=== PATIENT | male | born 1990 | race Caucasian/White ===

== ENCOUNTER 2018-10-24 20:30 | Observation (INO) | payer OTHER ==
[~2018-10-24] VITALS: Ht 175.3 cm; Wt 78.1 kg
[2018-10-24 21:17] LABS: BASOPHILS 0.1 % (0-2); EOSINOPHILS 0.3 % (0-7); HEMATOCRIT 42.5 % (42.0-54.0); HEMOGLOBIN 15.2 g/dL (13.5-17.5); IMMATURE GRANULOCYTES 0.3 % (0-5); LYMPHOCYTES 23.5 % (15-50); MCH 30.6 pg (26.0-34.0); MCHC 35.8 g/dL (31.0-37.0); MCV 85.5 fL (80.0-100.0); MEAN PLATELET VOLUME 10.5 fL (7.4-10.4); MONOCYTES 6.9 % (2-11); NEUTROPHILS 68.9 % (40-80); PLATELET COUNT 298 10x3/uL (130-400); RBC 4.97 10x6/uL (4.20-6.10); RDW 12.6 % (11.5-14.5); WBC 11.9 10x3/uL (4.8-10.8)
[2018-10-24 21:30] LABS: ALBUMIN 4.5 g/dL (3.4-5.0); ALKALINE PHOSPHATASE 56 U/L (46-116); ALT (SGPT) 25 U/L (10-68); BILIRUBIN - TOTAL 0.34 mg/dL (0.2-1.3); CALC OSMOLALITY 281 mosm/kg (275-300); CALCIUM 8.2 mg/dL (8.5-10.1); CHLORIDE - SERUM 105 mmol/L (98-107); CREATININE - SERUM 0.6 mg/dL (0.6-1.3); GLUCOSE 104 mg/dL (74-106); POTASSIUM - SERUM 3.5 mmol/L (3.5-5.1); PROTEIN - SERUM 7.9 g/dL (6.4-8.2); SODIUM 142 mmol/L (136-145); UREA NITROGEN 9 mg/dL (7-18); eGFR NON AFRICAN AMERICAN > 90 mL/min (90-120)
--- NOTE | 2018-10-24 22:00 | NUR ---
PT CAME TO THE NURSE DESK AND STATES THAT HE IS IN THE FLOOR. STATES THAT HE WAS TRYING TO GO SMOKE. ASSISTED PT BACK TO BED. VITAL SIGNS STABLE. C/O PAIN IN HIS LEFT ANKLE.
[2018-10-24 22:05] VITALS: BP 139/71
--- NOTE | 2018-10-24 23:38 | NUR ---
EDP DOWNED AT BEDSIDE. LEFT ANKLE SPLINTED.
[2018-10-25 00:46] VITALS: BP 114/71; Ht 175.3 cm; Wt 78.1 kg
--- NOTE | 2018-10-25 01:00 | NUR ---
PT ARRIVED ON UNIT VIA STRETCHER ESCORTED BY ER NURSE. TRANSFERRED HIMSELF TO BED WHILE YELLING, BUT DID MOVE HIMSELF. ELEVATED LEFT FOOT ON PILLOW. CONTINUED MVI IV FLUIDS TO LEFT AC AT 125 ML / HR. INVENTORIED BELONGINGS AND DOCUMENTED IN ASSESSMENT. CELLPHONE ON BEDSIDE TABLE; SILVER COLORED RING ON LEFT RING FINGER; BLACK WATCH ON LEFT ARM; ALL OTHER BELONGINGS IN BAG IN CLOSET INCLUDING KEYS IN JEANS POCKET.
--- NOTE | 2018-10-25 01:02 | NUR ---
ADMISSION ASSESSMENT AND HISTORY COMPLETE MUCH POSSIBLE WITH UNCONSCIOUS PATIENT.
[2018-10-25 05:27] VITALS: BP 124/62
[2018-10-25 07:58] LABS: BASOPHILS 0.1 % (0-2); EOSINOPHILS 0.3 % (0-7); HEMATOCRIT 39.1 % (42.0-54.0); HEMOGLOBIN 13.6 g/dL (13.5-17.5); IMMATURE GRANULOCYTES 0.4 % (0-5); LYMPHOCYTES 19.7 % (15-50); MCH 30.2 pg (26.0-34.0); MCHC 34.8 g/dL (31.0-37.0); MCV 86.7 fL (80.0-100.0); MEAN PLATELET VOLUME 10.8 fL (7.4-10.4); MONOCYTES 7.8 % (2-11); NEUTROPHILS 71.7 % (40-80); PLATELET COUNT 282 10x3/uL (130-400); RBC 4.51 10x6/uL (4.20-6.10); RDW 12.9 % (11.5-14.5); WBC 13.8 10x3/uL (4.8-10.8)
[2018-10-25 08:00] VITALS: BP 101/43
[2018-10-25 08:30] LABS: ALBUMIN 3.9 g/dL (3.4-5.0); ALKALINE PHOSPHATASE 53 U/L (46-116); ALT (SGPT) 24 U/L (10-68); BILIRUBIN - TOTAL 0.35 mg/dL (0.2-1.3); CALC OSMOLALITY 286 mosm/kg (275-300); CALCIUM 8.1 mg/dL (8.5-10.1); CARBON DIOXIDE 21.6 mmol/L (21.0-32.0); CHLORIDE - SERUM 109 mmol/L (98-107); CREATININE - SERUM 0.7 mg/dL (0.6-1.3); GLUCOSE 92 mg/dL (74-106); MAGNESIUM - SERUM 2.8 mg/dL (1.8-2.4); POTASSIUM - SERUM 3.7 mmol/L (3.5-5.1); PROTEIN - SERUM 6.9 g/dL (6.4-8.2); SODIUM 144 mmol/L (136-145); eGFR NON AFRICAN AMERICAN > 90 mL/min (90-120)
[2018-10-25 08:31] LABS: UREA NITROGEN 12 mg/dL (7-18)
[2018-10-25 14:00] VITALS: BP 121/45
[2018-10-25 18:01] VITALS: BP 122/59
[2018-10-25 20:00] VITALS: BP 118/50
--- NOTE | 2018-10-25 20:20 | NUR ---
ASSESSMENT PER FLOWSHEET. JOSE RAUL WRAP TO LEFT FOOT C/D/I. WITH SPLINT. ELEVATED ON ONE PILLOW. C/O INCREASED PAIN. RATES PAIN LEVEL #10 MORPHINE 4 MG IVP GIVEN FOR PAIN CONTROL. ELEVATED LEFT LEG ON 3 PILLOWS AND ICE BAG PLACED TO ANKLE. ELEVATED FOOT OF BED ALSO.
--- NOTE | 2018-10-25 21:00 | NUR ---
IV PATENT LEFT AC OF LR AT 50CC'S/HR. SITE CLEAR.
--- NOTE | 2018-10-25 22:00 | NUR ---
C/O INCREASED PAIN IN LEFT ANKLE FX. INFORMED PATIENT TOO EARLY FOR PAIN MED WILL NEED TO WAIT TIL 2330 THE EARILIEST CAN GIVE.
--- NOTE | 2018-10-25 23:44 | NUR ---
C/O PAIN TO LEFT ANKLE FRACTURE RATES PAIN LEVEL #10 MORPHINE 4 MG IVP GIVEN FOR PAIN CONTROL.
--- NOTE | 2018-10-26 00:15 | NUR ---
C/O INCREASED PAIN TO LEFT ANKLE FX. NOTIFIED DR. Osvaldo MARKS. HE WILL COME TO [facility] IN ABOUT 10-15 MINUTES. OBTAINED COMPARTMENT KIT FROM ER DEPT.
--- NOTE | 2018-10-26 00:30 | NUR ---
DR. HANDY HERE TO ASSESS PATIENT. NO COMPARTMENT SYNDROME NOTED. ORDERS REC'D FOR ONE TIME DOSE OF DEMEROL IM.
--- NOTE | 2018-10-26 00:50 | NUR ---
DEMEROL 100MG IM GIVEN X1 DOSE TO LEFT GLUTE.
[2018-10-26 04:00] VITALS: BP 114/64
--- NOTE | 2018-10-26 05:19 | NUR ---
C/O PAIN IN LEFT ANKLE FX RATES PAIN #6. MORPHINE 4MG IVP GIVEN FOR PAIN CONTROL.REMAINS NPO FOR SURGERY THIS AM. HIBICLEANSE BATH GIVEN EARILIER TONIGHT BY HIS .
--- NOTE | 2018-10-26 08:00 | NUR ---
LYING IN BED,WITHOUT DISTRESS.
[2018-10-26 10:14] VITALS: BP 118/69
[2018-10-26 12:19] VITALS: BP 120/79
--- NOTE | 2018-10-26 12:54 | OP ---
PATIENT NAME: JADEN AGUILLON MEDICAL RECORD: [id number] :[birth year] LOCATION:D[id number] ADMISSION DATE:10/24/18 SURGEON: NATHAN PORTER DO DATE OF OPERATION: 10/26/2018 PROCEDURE PERFORMED: Left ankle open reduction and internal fixation with syndesmotic fixation. PREOPERATIVE DIAGNOSIS: Left ankle bimalleolar fracture with syndesmotic disruption. POSTOPERATIVE DIAGNOSIS: Left ankle bimalleolar fracture with syndesmotic disruption. INDICATIONS: Mr. Aguillon is a 28-year-old male who, on Thursday night, fell while working in his shop off a ladder and fractured his left ankle. He was brought into the ER, initially splinted; but he was intoxicated, so admitted him overnight. He could not get his ankle surgery yesterday due to OR constraints, so he was put on for this morning, on the . He was aware of risks and benefits of the procedure including infection; bleeding; damage to nerves, specifically the superficial peroneal nerve; need for further surgery; malunion; nonunion; and removal of hardware. He signed the consent. SURGEON: Nathan Porter DO WELDER BOILERMAKER: I was assisted by Jonas Owusu, Advanced Nurse Practitioner, who assisted with holding retractors and closing. This surgery could not have been performed without his assistance. DESCRIPTION OF PROCEDURE: The patient received a block by anesthesia in the preoperative area. He was taken to the operative suite, laid in supine position, given general anesthetic, and LMA was placed. He was given 2 grams of Ancef preoperatively. Left lower extremity was prepped and draped in sterile fashion. Time-out was performed and everyone was in agreeance with correct side, site, patient, and procedure. After time-out was performed, the left lower extremity was exsanguinated with an Esmarch and the tourniquet was inflated to 350 mmHg, was up for 63 minutes. The incision then began over the medial malleolus, a curvilinear incision. Dissection was made down to the medial malleolus. Reduction was made and 2 K-wires were put in, holding reduction and confirming good placement on AP and lateral, and then two 40-mm partially threaded screws were placed over those, getting good fixation and holding the medial mal in place. The fibular fracture was then addressed. An approximately 3-cm incision was made distally over the fibula and then proximal to the fracture site. Plate was held up and an 8-hole plate would be an adequate distance of fixation. Then, a Triana was used to clear off the fibula and the path for the plate. The plate was then slid up submuscular up on the fibula. It was fixed into place with 2 ball tip pins, and once it was in good position on AP and lateral, fixed distally first with locking screws and then proximally with cortical screws. Then, one of the cortical screws was changed out for a locking screw and then one more locking screw was put distally. Then, a syndesmotic fixation was done. A large clamp was used to clamp the ankle together, closing the medial space. Then, the first TightRope was put, the distal one, through and cinched down and then the more proximal one was placed and cinched down with good fixation on AP and lateral; and then the clamp was removed. The ankle was stressed and held in good position. No medial space OPERATIVE REPORT [id number] JADEN AGUILLON was seen. The tourniquet was then let down at 63 minutes. All bleeders were coagulated at that time. The incisions were then closed with 2-0 Vicryl and ZipLines on the skin and then Adaptic and 4 x 4 were placed over the incision site with ABD on the heel. Then, cast padding was used to wrap and secure that in place and wrap up the lower leg. Then, a 4 x 30 splint was placed on the posterior aspect of the lower leg and secured in place with a 6- and a 4-inch Jason wraps. The patient was awakened then and taken to recovery in stable condition. BLOOD LOSS: Approximately 50 mL. COMPLICATIONS: None. TRANSINT:[id number] Voice Confirmation ID: [id number] DOCUMENT ID: [id number] NATHAN PORTER DO at 1254 CC: [id number] DICTATION DATE: 10/26/18914 HAND CLIPPER: 10/26/18 1237 ADM IN [facility] [address] [place] [address]
[2018-10-26 13:27] VITALS: BP 106/60
[2018-10-26] MEDS ORDERED: VISTARIL50 MG PO (13:29)
[2018-10-26] MEDS ORDERED: OXYCODONE HCL5 M1 PO (13:29)
--- NOTE | 2018-10-26 14:59 | NUR ---
IV DISCONTINUED WITH CATHETER INTACT
--- NOTE | 2018-10-26 15:09 | MORECARE ---
CASE MANAGEMENT DISCHARGE SUMMARY PATIENT: JADEN TEJEDA UNIT: [id number] ADM DATE: 10/24/18 AGE: 28 : [birth year] SEX: M ROOM/BED: [id number] AUTHOR: ITZEL OQUENDO PHYSICIAN: REFERRING PHYSICIAN: ÁNGEL PORTER DO DATE OF SERVICE: 10/26/18 Discharge Plan Patient Name: JADEN TEJEDA Facility: [facility]:[place] : 1990 Planned Disposition: Anticipated Discharge Date: Discharge Date: Expected LOS: Initial Reviewer: [email or web address] Initial Review Date: 10/25/2018 Generated: 10/26/18 4:09 pm Comments DCP- Discharge Planning Updated by [email or web address]: Nirmala Alexander on 10/26/18 2:[address] PATIENT DISCHARGING HOME TODAY, AT BEDSIDE. THEY STATED THAT THEY ARE GOING TO GO BUY SOME CRUTCHES AND A KNEE WALKER WHEN THEY ARE DISCHARGED. DENIES ANY NEEDS FROM CASE MANAGEMENT Patient Name: JADEN TEJEDA Page [id number] at 1509 All edits/amendments must be made on the electronic document DICTATION DATE: 10/26/181508 SENIOR ENVIRONMENTAL ENGINEER: HARDEEP 10/26/18 150 RPT#: [id number] DC DATE: STATUS: ADM IN [facility] [address] [place] [address] END OF REPORT
== END 2018-10-26 15:49 | disposition home or self-care (01) ==
LOC: D.ER 20:30 → D.MS 23:35 → OBSVTIME 23:35 → D.MS 23:35
PROVIDERS: Family Medicine; ADMIT Orthopaedic Surgery; ATTEND Orthopaedic Surgery
DX: S82.842A Displaced bimalleolar fracture of left lower leg, initial encounter for closed fracture (principal); W11.XXXA Fall on and from ladder, initial encounter; Z72.0 Tobacco use